=== PATIENT | female | born 1990 | race Caucasian/White ===

== ENCOUNTER 2017-06-05 11:27 | Emergency (ER) | payer OTHER ==
[~2017-06-05] VITALS: Ht 165.1 cm; Wt 93.6 kg
[~2017-06-05 11:27] MED LIST: Docusate Sodium PO; Hydrocodone/Acetaminophen PO; Ibuprofen PO; [UNRECOGNIZED DRUG - CODE] PO
[2017-06-05 11:33] VITALS: BP 146/90; PULSE 101; RESP 16; O2SAT 98
--- NOTE | 2017-06-05 11:42 | ED.REPORT ---
HPI-Dental/Mouth Prob Date of Service Jun 05, 2017 ED Provider: History of Present Illness: 27-year-old female here for dental pain. Onset last night. She started having swelling around her left upper molars. Pain onset this morning as well as left upper facial swelling.. No fevers. No vomiting. She does smoke. She called a dentist to get in until Wednesday. Nursing Notes Stated Complaint: LEFT SIDE CHEEK SWOLLEN AND PAINFUL Chief Complaint: Dental Nursing Notes Reviewed: Yes Allergies: Coded Allergies: No Known Allergies (Verified Allergy, Unknown, 06/05/17) Scheduled ([Docusate Sodium]) 100 MG CAPSULE 100 MG PO BID Nifedipine (Nifedipine ER) 30 Mg Tablet.er 30 MG PO DAILY Penicillin V Potassium (Penicillin V Potassium) 500 Mg Tablet 500 MG PO QID Scheduled PRN ([Hydrocodone/Acetaminophen]) 1 TAB TABLET 1-2 TAB PO Q4H PRN PRN For Pain ([Ibuprofen]) 800 MG TABLET 600 MG PO Q6H PRN PRN For Pain General Time Seen by MD: 11:36 Chief Complaint Gum swelling, Tooth pain Arrived By: Walk-in Onset Occurred: 1 - 4 hours ago Symptom Duration: Constant Severity: Current: Moderate Severity: Maximum: Severe Recent Healthcare: No recent doctor visit Similar Sx Previous: No Past Medical History Past Medical History Notes: Healthy Review of Systems Basic Review of Systems Skin: No bruising, No rash, No itch Allergy / Immune: No allergy Neurologic: NL mental status, No weakness, No numbness Psychiatric: Normal thought content Constitutional: Denies: Chills Ears / Nose / Throat: Reports: Toothache GI: Denies: Abdominal pain, Vomiting Complete sys rev & neg: except as marked. Physical Exam Initial Vital Signs Vital Signs (First) Date Time Temp Pulse Resp B/P Pulse Ox O2 Delivery O2 Flow Rate FiO2 06/05/17 11:33 36.5 101 16 146/90 98 Room Air Initial VS: Reviewed, Vital signs normal General/Constitutional: Well-developed Head / Eyes: Atraumatic Respiratory: Breath sounds normal, Clear to auscultation, No respiratory distress Cardiovascular: Regular rate & rhythm, Heart sounds normal, Intact distal pulses Abdomen / GI: Soft, Non-tender, No distention Skin: Warm, Dry, No cyanosis Neurologic: Alert, Oriented, Nonfocal Psychiatric: Mood/affect normal, Behavior normal, Normal thought content ENT: Atraumatic, Airway patent, Mucous membranes moist, Pharynx NL, No pooling of secretions, No trismus Mild left upper facial swelling, nontender. Moderate left upper posterior teeth tenderness and gum tenderness. Small sore noted above her first molar in the gums. Gums are not erythematous no obvious abscess. Discharge & Departure Primary Impression: Dental abscess Disposition: Home Discharge Condition All VS Reviewed: Yes Condition: Stable Patient Instructions: Dental Abscess (ED) Additional Instructions: Take antibiotics as prescribed. Take ibuprofen 800 mg and Tylenol 1 g each every 8 hours as needed for pain and swelling. Avoid eating on the affected side of the mouth. Return in 24-48 hours if symptoms are not improving or if you get fevers, vomiting or worsening condition. See a dentist as soon as possible. EDSupervising Provider for [facility]: Lopez Nails MD, Linnea K ARNP Jun 05, 2017 11:42
[2017-06-05] MEDS ORDERED: PENI500T PO (11:48)
== END 2017-06-05 12:10 | disposition home or self-care (01) ==
LOC: SED 11:27
DX: K04.7 Periapical abscess without sinus (principal)